=== PATIENT | female | born 1980 | race Hispanic/Latino ===

== ENCOUNTER 2021-07-25 20:49 | Emergency (ER) | payer OTHER ==
[2021-07-25] MEDS ORDERED: SODIUM CHLORIDE 0.9% 1000 ML 1,000 ML IV ONE (21:06)
[2021-07-25] MEDS ORDERED: ALBUTEROL 2.5 MG/3 ML NEBU IH ONE (21:07)
[2021-07-25] MEDS ORDERED: cefTRIAXone/NS 1 GM/50 ML 1 GM/50 ML BAG IV ONE (21:08)
[2021-07-25 21:18] LABS: ABG HCO3 22.1 mmol/L (20.0-26.0); ABG Methemoglobin 0.3 % (0.0-1.5); ABG Oxygen Saturation 92.1 % (95.0-99.0); ABG PCO2 50.2 mm Hg; ABG PH 7.262 pH Units (7.350-7.450); ABG PO2 71.6 mm Hg (80.0-90.0)
[2021-07-25 22:04] LABS: Hematocrit 31.7 % (30.3-42.9); Hemoglobin 10.4 gm/dl (10.1-14.3); Mean Corpuscular HGB Conc 33 % (30-34); Mean Corpuscular Volume 86 fl (79-97); Platelet Count 311 K/mm3 (140-440); Red Blood Count 3.69 M/mm3 (3.65-5.03); Red Cell Distribution Width 17.7 % (13.2-15.2)
[2021-07-25 22:14] LABS: INR 1.32 (0.87-1.13)
[2021-07-25 22:23] LABS: Alanine Aminotransferase 14 units/L (7-56); Albumin 2.8 g/dL (3.9-5); BUN/Creatinine Ratio 30; Blood Urea Nitrogen 64 mg/dL (7-17); Calcium 7.8 mg/dL (8.4-10.2); Hemolysis Index 3
[2021-07-25 22:45] LABS: Basophils % (Manual) 0 % (0.0-1.8); Eosinophils % (Manual) 0 % (0.0-4.3); RBC Morphology Normal; Total Cells Counted 100
--- NOTE | 2021-07-25 23:32 | XRay Report ---
CHEST 1 VIEW 07/25/2021 10:15 PM INDICATION / CLINICAL INFORMATION: SOB. COMPARISON: None available. FINDINGS: SUPPORT DEVICES: None. HEART / MEDIASTINUM: No significant abnormality. LUNGS / PLEURA: There is pulmonary vascular indistinctness. No focal consolidation. No pneumothorax. ADDITIONAL FINDINGS: No significant additional findings. IMPRESSION: 1. Mild pulmonary edema. Signer Name: Loy Paula DO Signed: 07/25/2021 11:28 PM Workstation Name: [id number]
[2021-07-26 00:20] LABS: Bacteria,Urine 1+ /HPF (Negative); Bilirubin,Urine NEG (Negative); Blood,Urine NEG (Negative); Color,Urine Amber (Yellow); Mucus,Urine FEW /HPF; Urobilinogen,Urine < 2.0 mg/dL (<2.0)
[2021-07-26 00:26] LABS: Amphetamine Screen,Urine PRESUMPTIVE NEGATIVE; Benzodiazepines Screen,Urine PRESUMPTIVE NEGATIVE; Cannabinoid Screen,Urine PRESUMPTIVE NEGATIVE; Cocaine Screen,Urine PRESUMPTIVE NEGATIVE; Methadone Screen,Urine PRESUMPTIVE POSITIVE; Opiate Screen,Urine PRESUMPTIVE NEGATIVE
[2021-07-26 00:30] LABS: HCG Qualitative,Urine Negative (Negative)
[2021-07-26] MEDS ORDERED: VANCOMYCIN/NS 1 GM/250 ML 1 GM/250 ML BAG IV ONE (01:32)
[2021-07-26] MEDS ORDERED: PIPERACILLIN/TAZOBACTAM 3.375 3.375 GM/50 ML BAG IV ONE (01:33)
--- NOTE | 2021-07-26 01:38 | Cat Scan Report ---
CT ABDOMEN AND PELVIS WITHOUT CONTRAST INDICATION / CLINICAL INFORMATION: Nausea and vomiting, recent abdominal hernia.. TECHNIQUE: Axial CT images were obtained through the abdomen and pelvis without IV contrast. All CT scans at this location are performed using CT dose reduction for ALARA by means of automated exposure control. COMPARISON: None available. FINDINGS: LOWER CHEST: Increased densities in the bilateral lung bases AORTA / ARTERIES: Mild atherosclerotic calcification without acute abnormality. IVC / VEINS: No significant abnormality. LYMPH NODES: No significant adenopathy. COLON: No significant abnormality. APPENDIX: Not visualized. STOMACH / SMALL BOWEL: There is marked distention of the proximal small bowel. There is also free flu id throughout the mesentery. There is marked mesenteric stranding along the right hemiabdomen. Involv ing the proximal small bowel there is a region of pneumatosis (series 2 images 75 through 85). PERITONEUM: Free fluid is noted within the abdomen and pelvis. There is free air noted within the jennifer tral mesentery. No clearly identified fluid collection. LIVER: No significant abnormality. GALLBLADDER: No significant abnormality. BILE DUCTS: No significant abnormality. PANCREAS: No significant abnormality. SPLEEN: No significant abnormality. ADRENALS: No significant abnormality. RIGHT KIDNEY / URETER: No significant abnormality. LEFT KIDNEY / URETER: No significant abnormality. URINARY BLADDER: Gas is noted within the urinary bladder. REPRODUCTIVE ORGANS: No significant abnormality. SKELETAL SYSTEM: No significant abnormality. ADDITIONAL FINDINGS: Gas and fluid collections are noted involving the anterior subcutaneous tissues. IMPRESSION: 1. There is marked distention of the small bowel within the abdomen with multiple foci of intraperito manish air, as well as free fluid throughout the abdomen and mesenteric stranding. There is an area of pneumatosis noted involving the small bowel. The constellation of these findings is highly concerning for bowel ischemia. 2. Gas and fluid collections within the anterior abdominal wall which may represent abscesses. 3. Increased density within the lung bases which may represent atelectasis versus aspiration. 4. Gas within the urinary bladder which may be secondary to instrumentation versus cystitis. IMPORTANT FINDING Time of Communication (QUANTITY SURVEYOR/CDT): 12:32 AM Licensed Practitioner Receiving Report: Dr. Cohen Signer Name: Loy Paula DO Signed: 07/26/2021 1:33 AM Workstation [id number]
[2021-07-26] MEDS ORDERED: SUCCINYLCHOLINE CHLORIDE 200 MG/10 ML INJ MDV ONE (01:44)
[2021-07-26] MEDS ORDERED: ETOMIDATE 20 MG/10 ML INJ IV ONE ×2 (01:44→01:50)
[2021-07-26] MEDS ORDERED: SUCCINYLCHOLINE CHLORIDE 200 MG/10 ML INJ MDV IV ONE (01:50)
[2021-07-26] MEDS ORDERED: fentaNYL DRIP Premix 2,000 MCG/100 ML BAG IV ONE (02:00)
[2021-07-26] MEDS ORDERED: fentaNYL 100 MCG/2 ML INJ IV PRN (02:01)
--- NOTE | 2021-07-26 02:07 | Emergency Department Report ---
ED General Adult HPI - General Chief complaint: Overdose Stated complaint: N/V, POSS OD Time Seen by Provider: 07/25/21 21:06 Source: EMS Mode of arrival: Stretcher Limitations: No Limitations - History of Present Illness Initial comments: pt had recent abdominal hernia on July 24 at [facility], pt c/o N/V and the friend told EMS they "could not find the oxycodone bottle" pt was prescribed after surgery yesterday (per paperwork Oxycodone 5/325 mg 5 pills). Pt also takes methadone, EMS states pt has multiple bottle of methadone at home per friend "she has to go to clinic tomorrow to receive refill on methadone "bc she is out". EMS states she has pinpoint -: Gradual, days(s) Location: abdomen Radiation: abdomen Consistency: constant - Related Data Allergies Allergy/AdvReac Type Severity Reaction Status Date / Time No Known Allergies Allergy Verified 07/26/21 01:49 ED Review of Systems ROS: Stated complaint: N/V, POSS OD Other details as noted in HPI Comment: Unobtainable due to pts medical conditions ED Past Medical Hx - Past Medical History Hx Hypertension: Yes Hx Psychiatric Treatment: Yes Additional medical history: neuropathy - Surgical History Past Surgical History?: Yes Additional Surgical History: abdominal hernia - Social History Smoking Status: Current Every Day Smoker Substance Use Type: Alcohol, Prescribed ED Physical Exam - General Limitations: Altered Mental Status General appearance: lethargic, obtunded, in distress, obese - Head Head exam: Present: atraumatic, normocephalic - Eye Eye exam: Present: normal appearance - Neck Neck exam: Present: full ROM - Respiratory Respiratory exam: Present: respiratory distress, wheezes, rales, rhonchi, decreased breath sounds - Cardiovascular Cardiovascular Exam: Present: normal rhythm, tachycardia - GI/Abdominal GI/Abdominal exam: Present: distended, tenderness, rigid - Expanded Neurological Exam Expanded Best Eye Response (Anastasia): (2) open to pain Best Motor Response (Anastasia): (4) withdraws to pain Best Verbal Response (Anastasia): (2) incomprehsible sounds Anastasia Total: 8 ED Course Vital Signs 07/25/21 07/25/21 07/25/21 20:50 21:30 21:50 Temperature 97.8 F Pulse Rate 112 H Pulse Rate [ 124 H Anterior Bilateral Throughout] Respiratory 20 26 H Rate Respiratory 18 Rate [Anterior Bilateral Throughout] Blood Pressure 120/78 O2 Sat by Pulse 93 97 Oximetry 07/25/21 07/25/21 07/25/21 22:07 22:40 22:46 Temperature Pulse Rate 117 H 117 H Pulse Rate [ Anterior Bilateral Throughout] Respiratory 19 20 Rate Respiratory Rate [Anterior Bilateral Throughout] Blood Pressure O2 Sat by Pulse 97 98 94 Oximetry 07/25/21 07/25/21 07/25/21 23:00 23:16 23:30 Temperature Pulse Rate 119 H 123 H 124 H Pulse Rate [ Anterior Bilateral Throughout] Respiratory 19 21 22 Rate Respiratory Rate [Anterior Bilateral Throughout] Blood Pressure 130/89 130/88 130/100 O2 Sat by Pulse 78 L 90 95 Oximetry 07/25/21 07/26/21 07/26/21 23:46 00:00 00:16 Temperature Pulse Rate 124 H 124 H 124 H Pulse Rate [ Anterior Bilateral Throughout] Respiratory 19 21 20 Rate Respiratory Rate [Anterior Bilateral Throughout] Blood Pressure 123/96 124/98 116/97 O2 Sat by Pulse 97 99 99 Oximetry - Intubation Time Out Performed: Yes Sedative: Etomidate Mg Given: 20 Paralytic: Succinylcholine Mg Given: 50 Laryngoscope: fiberoptic video scope Size: 4 Assist Device Used: fiberoptic device ET Tube Size: 7.5 Tube Secured Depth (cm): 24 Tube Secured Location: lips Tube Placement Confirmation: visualized tube passing t, equal breath sounds bilat, no breath sounds over epi, confirmation by capnometr Patient Tolerated Procedure: well, no complications Intubation Complications: none ED Medical Decision Making - Lab Data Result diagrams: 07/25/21 21:45 07/25/21 21:45 - EKG Data -: EKG Interpreted by Pa EKG shows normal: sinus rhythm Rate: tachycardia - EKG Data Interpretation: no acute changes - Radiology Data Radiology results: report reviewed, image reviewed - Medical Decision Making work up showed sepsis , fludis given lactic cultures and abx , uti noted , CT scan showed necrotic bowel, vanc and az on board spoke with [facility] where she was recently discharged , acceptinig dr renner, pt was intubated for protecting airway and aspiration Critical Care Time: Yes Critical care time in (mins) excluding proc time.: 65 Critical care attestation.: If time is entered above; I have spent that time in minutes in the direct care of this critically ill patient, excluding procedure time. Critical Care Time: 65 ED Disposition Clinical Impression: Altered mental state, Renal impairment, Respiratory failure, Hypoxia, Aspiration into airway, Sepsis, Ischemic bowel disease, Intestinal necrosis Disposition: 51 HOSPICE/MEDICAL FACILITY Is pt being admited?: No Does the pt Need Aspirin: No Condition: Critical Referrals: PRIMARY CARE, [Primary Care Provider] - 3-5 Days
[2021-07-26] MEDS ORDERED: MIDAZOLAM 5 MG/5 ML INJ MDV IV NR ×3 (02:32→03:00)
[2021-07-26] MEDS ORDERED: SODIUM CHLORIDE 0.9% 1000 ML 2,000 ML ONE (02:34)
[2021-07-26] MEDS ORDERED: SODIUM CHLORIDE 0.9% 1000 ML 1,000 ML IV ONE ×2 (02:40)
[2021-07-26 02:42] LABS: ABG Base Excess -5.1 mmol/L (-2.0-3.0); ABG HCO3 22.8 mmol/L (20.0-26.0); ABG Methemoglobin 0.6 % (0.0-1.5); ABG Oxygen Saturation 99.2 % (95.0-99.0); ABG PCO2 56.4 mm Hg; ABG PH 7.224 pH Units (7.350-7.450); ABG PO2 210.6 mm Hg (80.0-90.0)
--- NOTE | 2021-07-26 02:48 | XRay Report ---
CHEST 1 VIEW 07/26/2021 1:35 AM INDICATION / CLINICAL INFORMATION: Dyspnea. COMPARISON: 07/25/2021 FINDINGS: SUPPORT DEVICES: Endotracheal tube terminates approximately 3.0 cm the meghana. There is an enteric tu be which terminates within the stomach with side-port in the stomach as well. HEART / MEDIASTINUM: No significant abnormality. LUNGS / PLEURA: Bibasilar opacities. No pneumothorax. ADDITIONAL FINDINGS: No significant additional findings. IMPRESSION: 1. Lines and tubes as above, no pneumothorax. 2. Bibasilar opacities. Signer Name: Loy Paula DO Signed: 07/26/2021 2:44 AM Workstation Name: [id number]
[2021-07-26] MEDS ORDERED: fentaNYL DRIP Premix 2,000 MCG/100 ML BAG IV SCH (03:00)
[2021-07-26 03:49] VITALS: BP 126/87
--- NOTE | 2021-07-26 15:19 | XRay Report ---
CHEST 1 VIEW 07/26/2021 2:12 PM INDICATION / CLINICAL INFORMATION: Dyspnea. COMPARISON: 07/26/21 2:21 AM FINDINGS: SUPPORT DEVICES: New right jugular central line has been placed with the tip projecting over the supe rior vena cava. Endotracheal and esophagogastric tubes are unchanged. HEART / MEDIASTINUM: Stable. LUNGS / PLEURA: Patchy bibasilar pulmonary opacities are unchanged. No pneumothorax. ADDITIONAL FINDINGS: No significant additional findings. IMPRESSION: 1. Central line in expected position. Signer Name: Clovis Bang MD Signed: 07/26/2021 3:15 PM Workstation Name: [email or web address]
--- NOTE | 2021-07-31 18:14 | Electrocardiograph Report ---
[facility] Test Date: 2021-07-25 Test Time: 21:21:05 Pat Name: DAWNA GUERRA Department: Room: Gender: F Public Relations Writer: TIFFANIE : 1980 Requested By: ANGELIA OH Order Number: [id number] Reading MD: Georgi Mcneill Measurements Intervals Council Rate: 126 P: 56 FL: 144 QRS: 43 QRSD: 98 T: QT: 237 QTc: 344 Interpretive Statements Sinus tachycardia No previous ECG available for comparison Electronically Signed On 07-31-2021 18:13:59 EDT by Georgi Mcneill
== END 2021-07-26 03:40 | disposition hospice, inpatient (51) ==
LOC: ED 20:49
DX: A41.9 Sepsis, unspecified organism (principal); J69.0 Pneumonitis due to inhalation of food and vomit; J96.01 Acute respiratory failure with hypoxia; R41.82 Altered mental status, unspecified; N28.9 Disorder of kidney and ureter, unspecified; K55.9 Vascular disorder of intestine, unspecified; I10 Essential (primary) hypertension; G62.9 Polyneuropathy, unspecified; F17.290 Nicotine dependence, other tobacco product, uncomplicated
CPT/HCPCS: 31500; 31720; 36415; 71045; 74176; 80053; 80307; 81001; 81025; 82140; 82550; 82803; 83880; 84484; 85007; 85025; 85610; 86140; 87040; 87086; 93005; 94640; 96365; 96367; 96368; 99291; J0330; J0696; J2250; J2543; J3010; J3370; J3490; J7030; 80320; 94002; 94644; G0480